=== PATIENT | female | born 1955 | race Caucasian/White ===

== ENCOUNTER 2019-01-29 15:46 | Emergency (ER) | payer OTHER ==
[~2019-01-29] VITALS: Ht 147.3 cm; Wt 61.0 kg
[~2019-01-29 15:46] MED LIST: AMOX1TAB9 PO; IBUP-1561 PO
[2019-01-29 15:48] VITALS: BP 153/83; PULSE 107; RESP 18; Ht 147.3 cm; Wt 61.0 kg
== END 2019-01-29 17:26 | disposition home or self-care (01) ==
LOC: FTE 15:46
DX: F41.9 Anxiety disorder, unspecified (principal); H66.002 Acute suppurative otitis media without spontaneous rupture of ear drum, left ear; R06.02 Shortness of breath
CPT/HCPCS: 93005